=== PATIENT | female | born 1945 | race Caucasian/White ===

== ENCOUNTER → 2016-04-16 | Outpatient (CLI) | payer MEDICARE, OTHER ==
[2016-04-16 10:59] LABS: BASOPHILS % (AUTO) 1 % (0-2); EOSINOPHILS # (AUTO) 0.2 10^3uL; EOSINOPHILS % (AUTO) 2 % (0-4); LYMPHOCYTES # (AUTO) 2.8 X10^3; MEAN CORPUSCULAR HEMOGLOBIN 28.7 PG (26.0-34.0); MEAN CORPUSCULAR HGB CONC 34.4 g/dL (31.0-37.0); MEAN CORPUSCULAR VOLUME 83 FL (80-100); MEAN PLATELET VOLUME 9.3 FL (6.0-9.5); MONOCYTES # (AUTO) 0.8 X10^3; MONOCYTES % (AUTO) 11 % (3-11); NEUTROPHILS # (AUTO) 3.4 X10^3; NEUTROPHILS % (AUTO) 47 % (51-67); PLATELET COUNT 289 10^3uL (150-450); WHITE BLOOD COUNT 7.33 10^3uL (4.0-11.0)
[2016-04-16 11:07] LABS: BILIRUBIN,URINE Negative (Negative); CLARITY,URINE Clear; COLOR,URINE Yellow; GLUCOSE, URINE (UA) Negative (Negative); LEUKOCYTE ESTERASE ,URINE Negative (Negative); PH,URINE 6.5 (5.0 - 8.0); UROBILINOGEN,URINE 0.2 mg/dL (0.2-1.0)
[2016-04-16 11:24] LABS: ALBUMIN 4.2 g/dL (3.4-5.0); CALCULATED IONIZED CALCIUM 4.1 mg/dL (3.8-4.6); TOTAL PROTEIN 7.5 g/dL (6.4-8.5)
== END ==
LOC: LAB 10:43
PROVIDERS: ATTEND Family Medicine
DX: I10 Essential (primary) hypertension (principal); R53.83 Other fatigue
CPT/HCPCS: 36415; 80053; 80061; 81003; 84443; 85025; 86141